=== PATIENT | female | born 1995 | race Caucasian/White ===

== ENCOUNTER 2018-03-23 15:55 | Emergency (ER) | payer BC, OTHER ==
[2018-03-23 16:16] VITALS: RESP 18
[2018-03-23] MEDS ORDERED: SODIUM CHLORIDE 0.9% 1,000 ML IV ONE (16:53)
[2018-03-23] MEDS ORDERED: KETOROLAC 30 MG/ML 1 ML VIAL IVP STA (17:26)
[2018-03-23 17:29] LABS: Amorphous Sediment,Urine Occasional /hpf; Appearance,Urine Cloudy (Clear); Bacteria,Urine Occasional /hpf; Basophils % (A) 0 %; Bilirubin,Urine Negative (Negative); Blood,Urine Negative (Negative); Color,Urine Yellow; Eosinophils # (A) 0.1 k/uL (0-0.7); Eosinophils % (A) 2 %; Glucose,Urine (UA) Negative (Negative); HCT 42.4 % (34.0-46.0); HGB 14.1 gm/dL (11.4-16.0); Hyaline Casts,Urine 7 /lpf (0-2); Ketones,Urine Negative (Negative); Leukocyte Esterase,Urine Small (Negative); Lymphocytes # (A) 1.6 k/uL (1.0-4.8); Lymphocytes % (A) 24 %; MCH 28.9 pg (25.0-35.0); MCHC 33.3 g/dL (31.0-37.0); MCV 86.8 fL (80.0-100.0); Mean Platelet Volume 7.7; Monocytes # (A) 0.3 k/uL (0-1.0); Monocytes % (A) 5 %; Mucus,Urine Few /hpf; Neutrophils # (A) 4.4 k/uL (1.3-7.7); Neutrophils % (A) 68 %; Nitrite,Urine Negative (Negative); Platelet Count 195 k/uL (150-450); Protein,Urine 1+ (Negative); RBC 4.88 m/uL (3.80-5.40); RBC,Urine <1 /hpf (0-5); RDW 12.8 % (11.5-15.5); Specific Gravity,Urine 1.021 (1.001-1.035); Squamous Epithelial Cell,Urine 14 /hpf (0-4); Urobilinogen,Urine <2.0 mg/dL (<2.0); WBC 6.5 k/uL (3.8-10.6); WBC,Urine 17 /hpf (0-5)
[2018-03-23 17:32] LABS: ALT 14 U/L (9-52); AST 19 U/L (14-36); Albumin 4.8 g/dL (3.5-5.0); Alkaline Phosphatase 50 U/L (38-126); Anion Gap 13 mmol/L; Blood Urea Nitrogen 11 mg/dL (7-17); Calcium 9.6 mg/dL (8.4-10.2); Carbon Dioxide 24 mmol/L (22-30); Chloride 105 mmol/L (98-107); Glucose 116 mg/dL (74-99); Potassium 3.8 mmol/L (3.5-5.1); Sodium 142 mmol/L (137-145); Total Bilirubin 0.7 mg/dL (0.2-1.3); Total Protein 7.5 g/dL (6.3-8.2)
[2018-03-23 17:33] LABS: Partial Thromboplastin Time 23.4 sec (22.0-30.0); Prothrombin Time 10.2 sec (9.0-12.0)
[2018-03-23 17:46] LABS: Creatine Kinase 46 U/L (30-135)
[2018-03-23 17:59] LABS: Creatine Kinase MB <0.2 ng/mL (0.0-2.4); Troponin I <0.012 ng/mL (0.000-0.034)
--- NOTE | 2018-03-23 18:02 | XR ---
EXAMINATION TYPE: XR nasal bone DATE OF EXAM: 03/23/2018 COMPARISON: NONE HISTORY: Fall injury today with laceration and pain. TECHNIQUE: Both lateral and frontal projection nasal bones is acquired. FINDINGS: No acute displaced nasal bone fracture is seen. Nasal septum remains midline. Overlying sof t tissue is unremarkable. Visualized sinuses are clear. IMPRESSION: No acute displaced nasal bone fracture is identified.
--- NOTE | 2018-03-23 18:43 | ED ---
Syncope HPI - General Chief Complaint: Syncope Stated Complaint: Syncope/ Not been feeling well Time Seen by Provider: 03/23/18 16:53 Source: patient, RN notes reviewed Mode of arrival: wheelchair Limitations: no limitations - History of Present Illness Initial Comments: 22-year-old female presents emergency Department for syncopal episode. Patient states that she's not been feeling well last few days went to urgent care earlier today to she was constipated. Patient has left lower quadrant something. Patient states that she was standing talking to her grandmother in which she was not feeling well wants it down states that she in the past and off onto the ground. Patient is abrasion to her nose. Patient's tetanus is up- to-date. She complains of pain over her nose denies any epistaxis. Denies any severe headache or dizziness. Patient denies any current nausea vomiting diarrhea. She has no dysuria hematuria. Patient has no chance . - Related Data Home Medications Medication Instructions Recorded Confirmed [id number] 2 tab PO Q4HR PRN 03/23/18 03/23/18 [Excedrin] Allergies Allergy/AdvReac Type Severity Reaction Status Date / Time erythromycin base Allergy Nausea & Verified 03/23/18 17:34 Vomiting latex Allergy Rash/Hives Verified 03/23/18 17:34 Sulfa (Sulfonamide AdvReac Unknown Verified 03/23/18 17:34 Antibiotics) Review of Systems ROS Statement: Those systems with pertinent positive or pertinent negative responses have been documented in the HPI. ROS Other: All systems not noted in ROS Statement are negative. Past Medical History Additional Past Medical History / Comment(s): Kidney infection History of Any Multi-Drug Resistant Organisms: None Reported Past Surgical History: Breast Surgery Additional Past Surgical History / Comment(s): Mas left breats removed Past Anesthesia/Blood Transfusion Reactions: No Reported Reaction Past Psychological History: Depression Smoking Status: Former smoker Past Alcohol Use History: None Reported Past Drug Use History: Marijuana General Exam Limitations: no limitations General appearance: alert, in no apparent distress Head exam: Present: atraumatic, normocephalic, normal inspection Eye exam: Present: normal appearance, PERRL, EOMI. Absent: scleral icterus, conjunctival injection, periorbital swelling ENT exam: Present: normal oropharynx, mucous membranes moist, TM's normal bilaterally, normal external ear exam. Absent: normal exam (Abrasion noted to the bridge of the nose with mild tenderness) Neck exam: Present: normal inspection, full ROM. Absent: tenderness, meningismus, lymphadenopathy Respiratory exam: Present: normal lung sounds bilaterally. Absent: respiratory distress, wheezes, rales, rhonchi, stridor Cardiovascular Exam: Present: regular rate, normal rhythm, normal heart sounds. Absent: systolic murmur, diastolic murmur, rubs, gallop, clicks GI/Abdominal exam: Present: soft, normal bowel sounds. Absent: distended, tenderness, guarding, rebound, rigid Neurological exam: Present: alert, oriented X3, CN II-XII intact, reflexes normal, other (Sqtegh-gi-pywp intact bilaterally without shooting). Absent: motor sensory deficit Skin exam: Present: warm, dry, intact, normal color. Absent: rash Course Vital Signs 03/23/18 16:13 Temperature 97.1 F L Pulse Rate 81 Respiratory 18 Rate Blood Pressure 124/71 O2 Sat by Pulse 100 Oximetry EKG Findings - EKG Comments: EKG Findings:: EKG performed at 17:18 normal sinus rhythm with a rate of 77 WI 180 QRS 86 QTC is QTC 374/423 Medical Decision Making - Medical Decision Making 22-year-old female presents from for syncopal episode. Patient began to feel off, hot flushed feeling. Patient then passed out. Patient had no major complaints at this time. Patient labwork EKG an IV fluids she does feel improved. Patient's symptoms most likely related to vasovagal syncope. Patient follow-up with PCP return for any worsening symptoms. - Lab Data Result diagrams: 03/23/18 17:00 03/23/18 17:00 Lab Results 03/23/18 03/23/18 03/23/18 Range/Units 17:00 17:00 17:00 WBC 6.5 (3.8-10.6) k/uL RBC 4.88 (3.80-5.40) m/uL Hgb 14.1 (11.4-16.0) gm/dL Hct 42.4 (34.0-46.0) % MCV 86.8 (80.0-100.0) fL MCH 28.9 (25.0-35.0) pg MCHC 33.3 (31.0-37.0) g/dL RDW 12.8 (11.5-15.5) % Plt Count 195 (150-450) k/uL Neutrophils % 68 % Lymphocytes % 24 % Monocytes % 5 % Eosinophils % 2 % Basophils % 0 % Neutrophils # 4.4 (1.3-7.7) k/uL Lymphocytes # 1.6 (1.0-4.8) k/uL Monocytes # 0.3 (0-1.0) k/uL Eosinophils # 0.1 (0-0.7) k/uL Basophils # 0.0 (0-0.2) k/uL PT (9.0-12.0) sec INR (<1.2) APTT (22.0-30.0) sec Sodium 142 (137-145) mmol/L Potassium 3.8 (3.5-5.1) mmol/L Chloride 105 (98-107) mmol/L Carbon Dioxide 24 (22-30) mmol/L Anion Gap 13 mmol/L BUN 11 (7-17) mg/dL Creatinine 0.60 (0.52-1.04) mg/dL Est GFR (CKD-EPI)AfAm >90 (>60 ml/min/1.73 sqM) Est GFR (CKD-EPI)NonAf >90 (>60 ml/min/1.73 sqM) Glucose 116 H (74-99) mg/dL Calcium 9.6 (8.4-10.2) mg/dL Total Bilirubin 0.7 (0.2-1.3) mg/dL AST 19 (14-36) U/L ALT 14 (9-52) U/L Alkaline Phosphatase 50 (38-126) U/L Total Creatine Kinase 46 (30-135) U/L CK-MB (CK-2) <0.2 (0.0-2.4) ng/mL CK-MB (CK-2) Rel Index Troponin I <0.012 (0.000-0.034) ng/mL Total Protein 7.5 (6.3-8.2) g/dL Albumin 4.8 (3.5-5.0) g/dL Urine Color Urine Appearance (Clear) Urine pH (5.0-8.0) Ur Specific [place] (1.001-1.035) Urine Protein (Negative) Urine Glucose (UA) (Negative) Urine Ketones (Negative) Urine Blood (Negative) Urine Nitrite (Negative) Urine Bilirubin (Negative) Urine Urobilinogen (<2.0) mg/dL Ur Leukocyte Esterase (Negative) Urine RBC (0-5) /hpf Urine WBC (0-5) /hpf Ur Squamous Epith Cells (0-4) /hpf Amorphous Sediment (None) /hpf Urine Bacteria (None) /hpf Hyaline Casts (0-2) /lpf Urine Mucus (None) /hpf Urine HCG, Qual (Not Detectd) 03/23/18 03/23/18 03/23/18 Range/Units 17:00 17:00 17:00 WBC (3.8-10.6) k/uL RBC (3.80-5.40) m/uL Hgb (11.4-16.0) gm/dL Hct (34.0-46.0) % MCV (80.0-100.0) fL MCH (25.0-35.0) pg MCHC (31.0-37.0) g/dL RDW (11.5-15.5) % Plt Count (150-450) k/uL Neutrophils % % Lymphocytes % % Monocytes % % Eosinophils % % Basophils % % Neutrophils # (1.3-7.7) k/uL Lymphocytes # (1.0-4.8) k/uL Monocytes # (0-1.0) k/uL Eosinophils # (0-0.7) k/uL Basophils # (0-0.2) k/uL PT 10.2 (9.0-12.0) sec INR 1.0 (<1.2) APTT 23.4 (22.0-30.0) sec Sodium (137-145) mmol/L Potassium (3.5-5.1) mmol/L Chloride (98-107) mmol/L Carbon Dioxide (22-30) mmol/L Anion Gap mmol/L BUN (7-17) mg/dL Creatinine (0.52-1.04) mg/dL Est GFR (CKD-EPI)AfAm (>60 ml/min/1.73 sqM) Est GFR (CKD-EPI)NonAf (>60 ml/min/1.73 sqM) Glucose (74-99) mg/dL Calcium (8.4-10.2) mg/dL Total Bilirubin (0.2-1.3) mg/dL AST (14-36) U/L ALT (9-52) U/L Alkaline Phosphatase (38-126) U/L Total Creatine Kinase (30-135) U/L CK-MB (CK-2) (0.0-2.4) ng/mL CK-MB (CK-2) Rel Index Troponin I (0.000-0.034) ng/mL Total Protein (6.3-8.2) g/dL Albumin (3.5-5.0) g/dL Urine Color Yellow Urine Appearance Cloudy H (Clear) Urine pH 7.0 (5.0-8.0) Ur Specific [place] 1.021 (1.001-1.035) Urine Protein 1+ H (Negative) Urine Glucose (UA) Negative (Negative) Urine Ketones Negative (Negative) Urine Blood Negative (Negative) Urine Nitrite Negative (Negative) Urine Bilirubin Negative (Negative) Urine Urobilinogen <2.0 (<2.0) mg/dL Ur Leukocyte Esterase Small H (Negative) Urine RBC <1 (0-5) /hpf Urine WBC 17 H (0-5) /hpf Ur Squamous Epith Cells 14 H (0-4) /hpf Amorphous Sediment Occasional H (None) /hpf Urine Bacteria Occasional H (None) /hpf Hyaline Casts 7 H (0-2) /lpf Urine Mucus Few H (None) /hpf Urine HCG, Qual Not Detected (Not Detectd) Disposition Clinical Impression: Vasovagal syncope Disposition: HOME SELF-CARE Condition: Stable Instructions: Syncope (ED) Additional Instructions: Please return to the Emergency Department if symptoms worsen or any other concerns. Is patient prescribed a controlled substance at d/c from ED?: No Referrals: Víctor Cleary MD [Primary Care Provider] - 1-2 days Time of Disposition: 19:02
--- NOTE | 2018-03-23 18:52 | US ---
EXAMINATION TYPE: US transvaginal DATE OF EXAM: 03/23/2018 COMPARISON: NONE CLINICAL HISTORY: Pain. LLQ and pelvic pain x 4 days TECHNIQUE: Transvaginal (TV). Date of LMP: 02/24/2018 EXAM MEASUREMENTS: Uterus: 7.0 x 3.8 x 4.4 cm Endometrial Stripe:1.0 cm Right Ovary: 2.7 x 1.5 x 1.6 cm Left Ovary: 2.7 x 1.7 x 2.6 cm 1. Uterus: Anteverted wnl 2. Endometrium: wnl 3. Right Ovary: wnl 4. Left Ovary: wnl Spectral, color and waveform doppler imaging shows good arterial and venous flow within the ovaries . 5. Bilateral Adnexa: wnl 6. Posterior cul-de-sac: Small amount of fluid seen. Tiny amount of free fluid in pelvic cul-de-sac is seen on last images saved. Some peripheral follicle s are scattered throughout both ovaries. IMPRESSION: No suspicious finding is seen to account for patient's symptoms.
[2018-03-23 19:11] VITALS: BP 111/57; PULSE 54; TEMP 98.1
== END 2018-03-23 19:36 | disposition home or self-care (01) ==
LOC: EC 15:55
DX: R55 Syncope and collapse (principal); S00.31XA Abrasion of nose, initial encounter; Z88.1 Allergy status to other antibiotic agents; Z88.2 Allergy status to sulfonamides; Z91.040 Latex allergy status; Z87.891 Personal history of nicotine dependence; X58.XXXA Exposure to other specified factors, initial encounter
CPT/HCPCS: 99285; 96374; 96361; 36415; 93005; 80053; 82550; 82553; 84484; 85025; 85610; 85730; 81001; 81025; 87086; 70160; 93975; 76830; J1885

== ENCOUNTER → 2018-12-14 | Outpatient (CLI) | payer BC ==
[2018-12-14 14:22] LABS: Basophils # (A) 0.1 k/uL (0-0.2); Basophils % (A) 1 %; Eosinophils # (A) 0.1 k/uL (0-0.7); Eosinophils % (A) 1 %; HCT 43.5 % (34.0-46.0); Lymphocytes # (A) 1.9 k/uL (1.0-4.8); Lymphocytes % (A) 26 %; MCH 30.8 pg (25.0-35.0); MCHC 34.5 g/dL (31.0-37.0); MCV 89.3 fL (80.0-100.0); Mean Platelet Volume 7.4; Monocytes # (A) 0.3 k/uL (0-1.0); Monocytes % (A) 4 %; Neutrophils # (A) 5.1 k/uL (1.3-7.7); Neutrophils % (A) 67 %; Platelet Count 216 k/uL (150-450); RBC 4.87 m/uL (3.80-5.40); RDW 12.4 % (11.5-15.5); WBC 7.5 k/uL (3.8-10.6)
[2018-12-14 18:49] LABS: Albumin 4.9 g/dL (3.80-4.90); Albumin/Globulin Ratio 2.33 (1.20-2.10); Calcium 9.6 mg/dL (8.7-10.3); Globulin 2.1 g/dL (1.6-3.3); Potassium 3.8 mmol/L (3.5-5.5); Total Bilirubin 0.8 mg/dL (0.2-1.2)
[2018-12-14 18:57] LABS: HCG,Quantitative Serum 111.5 mIU/mL; T4, Free (Free Thyroxine) 1.4 ng/dL (0.80-1.80)
[2018-12-14 19:52] LABS: Gliadin AB IgA, Unit <0.2 U/mL
== END | disposition home or self-care (01) ==
LOC: LABWHC1 12:35
PROVIDERS: ATTEND Physician Assistant
DX: R19.4 Change in bowel habit (principal)
CPT/HCPCS: 36415; 80053; 83516; 84439; 84443; 84702; 85025

== ENCOUNTER → 2019-01-29 | Outpatient (CLI) | payer BC ==
[2019-01-29 13:24] LABS: HCT 35.7 % (34.0-46.0); HGB 12.5 gm/dL (11.4-16.0); MCH 31.2 pg (25.0-35.0); Platelet Count 216 k/uL (150-450); RBC 4.01 m/uL (3.80-5.40); RDW 12.8 % (11.5-15.5); WBC 8.7 k/uL (3.8-10.6)
[2019-02-01 03:33] LABS: Toxoplasma Antibody (IgG) <3.0 IU/mL (<7.2); Toxoplasma Antibody (IgM) <3.0 AU/mL (<8.0)
== END | disposition home or self-care (01) ==
LOC: LABWHC1 12:46
PROVIDERS: ATTEND Obstetrics & Gynecology
DX: Z34.01 Encounter for supervision of normal first pregnancy, first trimester (principal)
CPT/HCPCS: 36415; 82565; 82947; 85027; 86762; 86777; 86778; 86780; 86850; 86900; 86901; 87340

== ENCOUNTER 2019-08-23 12:25 | Inpatient (IN) | payer BC, OTHER ==
--- NOTE | 2019-08-24 12:18 | P.HPOB ---
History of Present Illness H&P Date: 08/24/19 Chief Complaint: Postdates, requesting induction. This patient is a pleasant 23 yr female EDC 08/23/2019 estimated gestational age 40 2/7 weeks who presents for postdates induction of labor. has been uncomplicated. She is now requesting induction of labor. Review of Systems Genitourinary: Reports Menstruation: Reports amenorrhea Past Medical History Past Medical History: No Reported History Additional Past Medical History / Comment(s): Kidney infection History of Any Multi-Drug Resistant Organisms: None Reported Past Surgical History: Breast Surgery Additional Past Surgical History / Comment(s): Lumpectomy left breast Past Anesthesia/Blood Transfusion Reactions: No Reported Reaction Past Psychological History: Depression Smoking Status: Former smoker Past Alcohol Use History: None Reported Past Drug Use History: Marijuana (Quit during .) Medications and Allergies Home Medications Medication Instructions Recorded Confirmed Type [id number] [id number] 2 tab PO Q4HR PRN 03/23/18 03/23/18 History [Excedrin] Allergies Allergy/AdvReac Type Severity Reaction Status Date / Time erythromycin base Allergy Nausea & Verified 03/23/18 17:34 Vomiting latex Allergy Rash/Hives Verified 03/23/18 17:34 Sulfa (Sulfonamide AdvReac Unknown Verified 03/23/18 17:34 Antibiotics) Exam - OBG Physical Exam Abdomen: bowel sounds normal, no diffuse tenderness, no bruit present, no guarding noted, no hepatomegaly, no splenomegaly, no mass Vulva: both: normal Vagina: normal moisture, no discharge Cervix: no lesion (1-2/50/0 station), no discharge Uterus: enlarged (Fundal height is 39 cm.) Results labs: A negative (received Rhogam 05/24/2019), HepB neg, RPR non- reactive, Rubella Immune, Toxo negative, GBS positive. Ultrasound shows normal growth. Assessment and Plan Assessment: This is a pleasant 23 yr female 40 2/7 weeks gestation who is requesting induction of labor. Positive GBS culture. Plan is antibiotic prophylaxis and induction of labor. I have discussed the induction process, risks/benefits. (1) Postmaturity , 40-42 weeks gestation Status: Acute Code(s): O48.0 - POST-TERM SNOMED Code(s): 79064603449032 (2) Group B streptococcal carriage complicating Status: Acute Code(s): O99.820 - STREPTOCOCCUS B CARRIER STATE COMPLICATING SNOMED Code(s): 123988459528478 (3) Elective induction of labor planned Status: Acute Code(s): HFJ6244 - SNOMED Code(s): 479184716
[2019-08-25] MEDS ORDERED: OXYTOCIN 10 UNIT/ML 1 ML VIAL IM PRN (06:06)
[2019-08-25] MEDS ORDERED: AMPICILLIN 2,000 MG in SODIUM CHLORIDE 0.9% 100 ML IVPB STA (06:06)
[2019-08-25] MEDS ORDERED: OXYTOCIN 30 UNITS/500 ML NS 30 UNIT in SALINE 1 500ML.BAG IV SCH (06:06)
[2019-08-25] MEDS ORDERED: LIDOCAINE 0.5% (PF) 5 MG/ML (50 ML SDV) SQ PRN (06:06)
[2019-08-25] MEDS ORDERED: METHYLERGONOVINE 0.2 MG/ML 1 ML AMP IM PRN (06:06)
[2019-08-25] MEDS ORDERED: TERBUTALINE 1 MG/ML VIAL SQ PRN (06:06)
[2019-08-25] MEDS ORDERED: CARBOPROST TROMETHAMINE 250 MCG/ML 1 ML AMP IM PRN (06:06)
[2019-08-25] MEDS: LACTATED RINGERS 1,000 ML IV SCH ×2 (06:14→09:28)
[2019-08-25 06:43] LABS: Basophils # (A) 0.1 k/uL (0-0.2); Basophils % (A) 1 %; Eosinophils # (A) 0.2 k/uL (0-0.7); Eosinophils % (A) 2 %; HCT 39.4 % (34.0-46.0); HGB 12.7 gm/dL (11.4-16.0); Lymphocytes # (A) 2.6 k/uL (1.0-4.8); Lymphocytes % (A) 22 %; MCH 28.7 pg (25.0-35.0); MCHC 32.3 g/dL (31.0-37.0); MCV 88.8 fL (80.0-100.0); Mean Platelet Volume 7.9; Monocytes # (A) 0.8 k/uL (0-1.0); Monocytes % (A) 7 %; Neutrophils # (A) 7.8 k/uL (1.3-7.7); Neutrophils % (A) 67 %; Platelet Count 217 k/uL (150-450); RBC 4.44 m/uL (3.80-5.40); RDW 14.3 % (11.5-15.5); WBC 11.7 k/uL (3.8-10.6)
[2019-08-25 06:53] VITALS: BMI 24.9
[2019-08-25] MEDS ORDERED: ROPIVACAINE 5MG/ML 20ML VIAL ONE (09:31)
[2019-08-25] MEDS ORDERED: fentaNYL (PF) 50 MCG/ML 5 ML AMP ONE (09:31)
[2019-08-25] MEDS ORDERED: SODIUM CHLORIDE 0.9% 100 ML BAG ONE (09:31)
[2019-08-25] MEDS: AMPICILLIN 1,000 MG in SODIUM CHLORIDE 0.9% 50 ML IVPB SCH ×2 (10:21→15:56)
[2019-08-25] MEDS ORDERED: ONDANSETRON 4 MG/2 ML VIAL IVP STA (12:10)
[2019-08-25] MEDS ORDERED: Rhogam IMMUNE GLOBULIN 1,500 UNIT/1 ML IM ONE (15:19)
[2019-08-25] MEDS ORDERED: OXYTOCIN 20 UNITS/1000 ML NS 1,000 ML IV SCH (15:19)
[2019-08-25] MEDS ORDERED: SIMETHICONE 80 MG CHEWABLE PO PRN (15:19)
[2019-08-25] MEDS ORDERED: BENZOCAINE/MENTHOL SPRAY 1 GM/SPRAY AEROSOL TOPICAL PRN (15:19)
[2019-08-25] MEDS ORDERED: BISACODYL 10 MG SUPP RECTAL PRN (15:19)
[2019-08-25] MEDS ORDERED: diphenhydrAMINE 50 MG/ML 1 ML VIAL IVP PRN (15:19)
[2019-08-25] MEDS ORDERED: WITCH HAZEL 1 EACH MED..PAD TOPICAL PRN (15:19)
[2019-08-25] MEDS ORDERED: LANOLIN CREAM 5 GM TUBE TOPICAL PRN (15:19)
[2019-08-25] MEDS ORDERED: ZOLPIDEM 5 MG TAB PO PRN (15:19)
[2019-08-25] MEDS ORDERED: diphenhydrAMINE 25 MG CAP PO PRN (15:19)
[2019-08-25] MEDS ORDERED: HYDROCORTISONE 2.5% RECTAL CREAM 30 GM TUBE RECTAL PRN (15:19)
[2019-08-25] MEDS: IBUPROFEN 600 MG TAB PO PRN ×2 (15:42→23:29)
[2019-08-25] MEDS: SENNOSIDES-DOCUSATE SODIUM 1 EACH TAB PO SCH ×2 (16:11→19:32)
--- NOTE | 2019-08-25 16:51 | P.PROBDLV ---
Vaginal Delivery Note - . Vaginal Delivery Note: Normal vaginal delivery viable male infant Apgars 9 and 9 delivery time is 1510 hrs. Please see dictated H&P for intimate details of this patient's admission. Brief summary this is a pleasant 23-year-old 1 para 0 female 40-2/7 weeks gestation who is admitted to labor and delivery for postdates induction of labor. Patient had a positive group B strep culture started on 2 g ampicillin 1 g every 4. She has Pitocin augmentation of labor and artificial rupture membranes at 2 cm for clear fluid. Labor progresses and she does get an epidural she quickly goes to complete. Patient pushes for approximately 1 hour and 45 minutes and pushes the head to the perineum. At this point the patient is exhausted and has suboptimal effort and therefore I infiltrate the posterior perineum with lidocaine and a midline episiotomy is made upon doing th is with the next push we have delivery the 's head over the intact perineum. was delivered straight hospital posterior presentation. There is no evidence of a nuchal cord. Mouth and nares are bulb suctioned. The anterior shoulder deliver spontaneously without effort and the posterior shoulder and rest this 's body. This is a vigorous viable male infant Apgars are 9 and 9 delivery time was 1510 hrs. After delivery of the infant the is late the mother's abdomen after the cord is done pulsing is doubly clamped and cut. Cord blood is obtained for Rh status. The placenta is then spontaneously delivered intact. Inspection of perineum shows a second-degree laceration which is repaired with 3-0 Vicryl usual fashion excellent reapproximation is noted. Estimated blood loss is 200 mL. There are no complications. All counts are correct 3. and mother stable delivery room.
[2019-08-25] MEDS: ACETAMINOPHEN TAB 325 MG TAB PO PRN (19:33)
--- NOTE | 2019-08-26 06:33 | P.PNOBGVD ---
Subjective - Subjective Patient reports: Reports appetite normal, Reports voiding normally, Reports pain well controlled, Reports ambulating normally : doing well Objective - Latest Vital Signs Latest vital signs: Vital Signs Temp Pulse Resp BP 08/26/19 00:00 98.0 F 75 16 108/57 08/25/19 20:00 98.0 F 113 H 16 142/75 08/25/19 17:30 98.0 F 99 18 138/71 08/25/19 17:00 97.9 F 87 18 127/68 08/25/19 16:30 98.0 F 94 18 122/71 08/25/19 16:15 102 H 123/66 08/25/19 16:00 97.8 F 100 18 128/65 08/25/19 15:45 98.3 F 109 H 18 132/67 08/25/19 15:30 97.8 F 103 H 18 134/71 Intake and Output 08/25/19 08/25/19 08/26/19 14:59 22:59 06:59 Output Total 600 200 Balance -600 -200 Output: Urine 600 Estimated Blood Loss 200 Other: # Voids 1 2 - Exam Lungs: bilateral: normal Chest: Normal S1, Normal S2 Extremities: Present: normal Abdomen: Present: normal appearance, soft Uterus: Present: normal, firm - Labs Labs: Abnormal Lab Results - Last 24 Hours (Table) 08/25/19 Range/Units 06:05 WBC 11.7 H (3.8-10.6) k/uL Neutrophils # 7.8 H (1.3-7.7) k/uL Assessment and Plan Assessment: day #1. Patient is resting without complaints. Vital signs are stable she is afebrile. Uterus is firm nontender she's having normal lochia. My impression is a normal course. Plan is to continue routine care discharge home tomorrow (1) Postmaturity , 40-42 weeks gestation Current Visit: No Status: Acute Code(s): O48.0 - POST-TERM SNOMED Code(s): 75509978318719 (2) Group B streptococcal carriage complicating Current Visit: No Status: Acute Code(s): O99.820 - STREPTOCOCCUS B CARRIER STATE COMPLICATING SNOMED Code(s): 000802883303838 (3) Elective induction of labor planned Current Visit: No Status: Acute Code(s): [id number] - SNOMED Code(s): 960819219
[2019-08-26] MEDS: SENNOSIDES-DOCUSATE SODIUM 1 EACH TAB PO SCH ×2 (07:55→19:31)
[2019-08-26] MEDS: IBUPROFEN 600 MG TAB PO PRN ×2 (07:55→17:44)
[2019-08-26] MEDS: ACETAMINOPHEN TAB 325 MG TAB PO PRN ×2 (12:18→19:30)
--- NOTE | 2019-08-27 06:29 | P.PNOBGVD ---
Subjective - Subjective Patient reports: Reports appetite normal, Reports voiding normally, Reports pain well controlled, Reports ambulating normally : doing well, other (Jaundice) Objective - Latest Vital Signs Latest vital signs: Vital Signs Temp Pulse Resp BP Pulse Ox 08/27/19 00:00 98.5 F 93 16 138/77 08/26/19 16:00 98.3 F 72 18 120/74 08/26/19 08:00 98.2 F 84 18 111/70 97 Intake and Output 08/26/19 08/26/19 08/27/19 14:59 22:59 06:59 Other: # Voids 1 2 1 - Exam Lungs: bilateral: normal Chest: Normal S1, Normal S2 Extremities: Present: normal Abdomen: Present: normal appearance, soft Uterus: Present: normal, firm Assessment and Plan Assessment: Post day #2. Patient is resting without new complaints. Vital signs are stable she's afebrile. Uterus is firm nontender she's having normal lochia. Baby is currently being treated for some jaundice. Plan today is to continue routine care. Discharge home later today. (1) Postmaturity , 40-42 weeks gestation Current Visit: No Status: Acute Code(s): O48.0 - POST-TERM SNOMED Code(s): 81459427259100 (2) Group B streptococcal carriage complicating Current Visit: No Status: Acute Code(s): O99.820 - STREPTOCOCCUS B CARRIER STATE COMPLICATING SNOMED Code(s): 438878142914807 (3) Elective induction of labor planned Current Visit: No Status: Acute Code(s): [id number] - SNOMED Code(s): 177641748
--- NOTE | 2019-08-27 06:33 | P.DS ---
Providers Date of admission: 08/25/19 05:52 Expected date of discharge: 08/27/19 Attending physician: Emmanuel Flores Primary care physician: Yobani Cleary - Discharge Diagnosis(es) (1) Postmaturity , 40-42 weeks gestation Current Visit: No Status: Acute (2) Group B streptococcal carriage complicating Current Visit: No Status: Acute (3) Elective induction of labor planned Current Visit: No Status: Acute Hospital Course: Please see dictated H&P for intimate details of this patient's admission. Brief summary this pleasant 23-year-old 1 para 0 female 40-2/7 weeks gestation admitted to labor and delivery for postdates induction of labor. Patient admitted and goes on have a vaginal delivery viable male infant. Please see dictated delivery note. day #2 patient's felt to be stable for discharge home follow up with me in 6 weeks. Procedures: Induction of labor and normal vaginal delivery Patient Condition at Discharge: Good Plan - Discharge Summary New Discharge Prescriptions: New Ibuprofen [Motrin] 600 mg PO Q6HR PRN #40 tab PRN Reason: Mild Pain Or Fever >= 100.5 No Action Pnv,Calcium 72/Iron/Folic Acid [ Plus Tablet] 1 tab PO DAILY Discharge Medication List Pnv,Calcium 72/Iron/Folic Acid [ Plus Tablet] 1 tab PO DAILY 08/25/19 [History] Ibuprofen [Motrin] 600 mg PO Q6HR PRN #40 tab 08/27/19 [Rx] Follow up Appointment(s)/Referral(s): Emmanuel Flores MD [STAFF PHYSICIAN] - 10/05/19 2:00 pm Patient Instructions/Handouts: Vaginal Delivery (DC) Activity/Diet/Wound Care/Special Instructions: No intercourse or anything per vagina for 6 weeks. Please call if any fever, chills, excessive vaginal bleeding, and/or abdominal pain. Discharge Disposition: HOME SELF-CARE
[2019-08-27] MEDS: IBUPROFEN 600 MG TAB PO PRN (10:10)
[2019-08-27] MEDS: SENNOSIDES-DOCUSATE SODIUM 1 EACH TAB PO SCH (10:11)
[2019-08-27 10:22] VITALS: BP 103/56; PULSE 82; RESP 18; TEMP 98
== END 2019-08-27 17:20 | disposition home or self-care (01) | DRG 807 ==
LOC: 4FBP 08-25 05:52
PROVIDERS: ADMIT Obstetrics & Gynecology; ATTEND Obstetrics & Gynecology
PROC: 10E0XZZ Delivery of Products of Conception, External Approach (ICD-10-PCS; principal; 2019-08-25)
PROC: 0KQM0ZZ Repair Perineum Muscle, Open Approach (ICD-10-PCS; 2019-08-25)
PROC: 0W8NXZZ Division of Female Perineum, External Approach (ICD-10-PCS; 2019-08-25)
PROC: 00HU33Z Insertion of Infusion Device into Spinal Canal, Percutaneous Approach (ICD-10-PCS; 2019-08-25)
PROC: 3E0R3BZ Introduction of Anesthetic Agent into Spinal Canal, Percutaneous Approach (ICD-10-PCS; 2019-08-25)
PROC: 3E033VJ Introduction of Other Hormone into Peripheral Vein, Percutaneous Approach (ICD-10-PCS; 2019-08-25)
PROC: 10907ZC Drainage of Amniotic Fluid, Therapeutic from Products of Conception, Via Natural or Artificial Opening (ICD-10-PCS; 2019-08-25)
DX: O48.0 Post-term pregnancy (principal); Z37.0 Single live birth; O70.1 Second degree perineal laceration during delivery; O99.824 Streptococcus B carrier state complicating childbirth; Z3A.40 40 weeks gestation of pregnancy; Z98.890 Other specified postprocedural states; Z87.440 Personal history of urinary (tract) infections; Z79.899 Other long term (current) drug therapy; Z79.82 Long term (current) use of aspirin; Z86.59 Personal history of other mental and behavioral disorders; Z87.891 Personal history of nicotine dependence; Z88.2 Allergy status to sulfonamides; Z88.1 Allergy status to other antibiotic agents; Z91.040 Latex allergy status
CPT/HCPCS: 85025; 85461; 86850; 86870; 86880; 86900; 86901

== ENCOUNTER 2022-04-23 08:51 | Emergency (ER) | payer OTHER ==
[2022-04-23 08:55] VITALS: TEMP 97.6
[2022-04-23 09:17] LABS: Amorphous Sediment,Urine Rare /hpf; Appearance,Urine Clear (Clear); Bilirubin,Urine Negative (Negative); Blood,Urine Small (Negative); Color,Urine Light Yellow; Glucose,Urine (UA) Negative (Negative); Ketones,Urine Negative (Negative); Leukocyte Esterase,Urine Small (Negative); Mucus,Urine Occasional /hpf; Nitrite,Urine Negative (Negative); PH, Urine 6.5 (5.0-8.0); Protein,Urine Negative (Negative); RBC,Urine 17 /hpf (0-5); Specific Gravity,Urine 1.008 (1.001-1.035); Squamous Epithelial Cell,Urine <1 /hpf (0-4); Urobilinogen,Urine <2.0 mg/dL (<2.0); WBC,Urine 10 /hpf (0-5)
--- NOTE | 2022-04-23 10:59 | ED ---
General Adult HPI - General Chief complaint: Abdominal Pain Stated complaint: 7 wks preg, cramping Time Seen by Provider: 04/23/22 10:50 Source: patient, RN notes reviewed, old records reviewed Mode of arrival: ambulatory Limitations: no limitations - History of Present Illness Initial comments: This is a well-appearing 26-year-old female that presents to the emergency room with lower pelvic cramping and dysuria that started last night. Pain is lower pelvis worse on the right. She did call her [employer] who referred her to the emergency room for evaluation. She states that she does have her first [employer] appointment in 2 weeks. She is a . She denies any vaginal bleeding. Does have nausea but no vomiting. She is a nonsmoker. -: hour(s) Location: pelvis Severity scale (1-10): 5 Quality: other (cramping) Improves with: none Worsens with: none Associated Symptoms: other (dysuria) Treatments Prior to Arrival: none - Related Data Home Medications Medication Instructions Recorded Confirmed Pnv,Calcium 72/Iron/Folic Acid 1 tab PO DAILY 08/25/19 08/25/19 [ Plus Tablet] Previous Rx's Medication Instructions Recorded Ibuprofen [Motrin] 600 mg PO Q6HR PRN #40 tab 08/27/19 Cephalexin [Keflex] 500 mg PO Q6HR 7 Days #28 cap 04/23/22 Allergies Allergy/AdvReac Type Severity Reaction Status Date / Time erythromycin base Allergy Rash/Hives Verified 04/23/22 08:55 latex Allergy Rash/Hives Verified 04/23/22 08:55 Review of Systems ROS Statement: Those systems with pertinent positive or pertinent negative responses have been documented in the HPI. ROS Other: All systems not noted in ROS Statement are negative. Past Medical History Past Medical History: Asthma Additional Past Medical History / Comment(s): pt states has childhood hx of asthma. states uses inhaler very rarely. pt also states that she has occasional migraines, has a hx of anxiety and depression that she has not had to be medicated for for 2 years. History of Any Multi-Drug Resistant Organisms: None Reported Past Surgical History: Breast Surgery Additional Past Surgical History / Comment(s): Lumpectomy left breast 2016 Past Anesthesia/Blood Transfusion Reactions: No Reported Reaction Past Psychological History: Anxiety, Depression Smoking Status: Never smoker Past Alcohol Use History: None Reported Past Drug Use History: Marijuana - Past Family History Father Family Medical History: Hypertension General Exam Limitations: no limitations General appearance: alert, in no apparent distress Head exam: Present: atraumatic, normocephalic, normal inspection Eye exam: Present: normal appearance. Absent: scleral icterus, conjunctival injection ENT exam: Present: normal exam, normal oropharynx, mucous membranes moist Respiratory exam: Present: normal lung sounds bilaterally. Absent: respiratory distress, accessory muscle use Cardiovascular Exam: Present: regular rate, normal heart sounds GI/Abdominal exam: Present: soft, tenderness (suprapubic). Absent: distended Extremities exam: Present: normal inspection, normal capillary refill. Absent: pedal edema Back exam: Absent: tenderness, CVA tenderness (R), CVA tenderness (L) Neurological exam: Present: alert, oriented X3 Psychiatric exam: Present: normal affect, normal mood Skin exam: Present: warm, dry, normal color. Absent: cyanosis, diaphoretic, petechiae, pallor Course Vital Signs 04/23/22 04/23/22 08:53 12:11 Temperature 97.6 F Pulse Rate 64 75 Respiratory 20 18 Rate Blood Pressure 118/60 114/67 O2 Sat by Pulse 100 Oximetry Medical Decision Making - Medical Decision Making Ultrasound shows IUP 6 weeks 4 days. Patient denies vaginal bleeding. Urinalysis shows 10 WBCs and small amount of blood. There is no bacerturia noted. Urine was sent for culture and patient will be placed on Keflex since she has symptoms of dysuria and is . She was instructed to take Tylenol as needed for any discomfort. She was instructed to follow-up with her [employer] or primary care doctor this week and return to the emergency room with any new or concerning symptoms including increased abdominal pain or vaginal bleeding. Patient is agreeable to this plan of care. Case discussed with Dr. Bagley - Lab Data Lab Results 04/23/22 Range/Units 09:03 Urine Color Light Yellow Urine Appearance Clear (Clear) Urine pH 6.5 (5.0-8.0) Ur Specific [place] 1.008 (1.001-1.035) Urine Protein Negative (Negative) Urine Glucose (UA) Negative (Negative) Urine Ketones Negative (Negative) Urine Blood Small H (Negative) Urine Nitrite Negative (Negative) Urine Bilirubin Negative (Negative) Urine Urobilinogen <2.0 (<2.0) mg/dL Ur Leukocyte Esterase Small H (Negative) Urine RBC 17 H (0-5) /hpf Urine WBC 10 H (0-5) /hpf Ur Squamous Epith Cells <1 (0-4) /hpf Amorphous Sediment Rare H (None) /hpf Urine Mucus Occasional H (None) /hpf Disposition Clinical Impression: UTI (urinary tract infection) Disposition: HOME SELF-CARE Condition: Good Instructions (If sedation given, give patient instructions): Dysuria (ED), Urinary Tract Infection in (ED) Additional Instructions: Increase your fluid intake. Take antibiotics as prescribed and follow-up with the primary care doctor this week. Return to the emergency room with any new or concerning symptoms including vaginal bleeding, increased abdominal pain or fevers. Prescriptions: Cephalexin [Keflex] 500 mg PO Q6HR 7 Days #28 cap Is patient prescribed a controlled substance at d/c from ED?: No Referrals: Víctor Cleary MD [Primary Care Provider] - 1-2 days Time of Disposition: 12:06
--- NOTE | 2022-04-23 11:35 | US ---
EXAMINATION TYPE: Transabdominal DATE OF EXAM: 04/23/2022 10:48 AM COMPARISON: NONE CLINICAL HISTORY: 7 weeks preg and cramping. EXAM PERFORMED: EXAM MEASUREMENTS: GESTATIONAL AGE / DATING Physician Established: Not yet established Dates by LMP: (7 weeks/0 days) EDC: 12-13-22 Dates by First Scan: No previous this is first scan Dates by Current Scan for: (6 weeks/4 days) EDC: 12-10-21 MATERNAL ANATOMY Uterus: 9.4 x 5.8 x 7.8cm Right Ovary: 3.1 x 1.7 x 1.9cm Left Ovary: 2.2 x 1.5 x 1.8 Post CDS / Adnexa: wnl GESTATION / SURVEY CRL: 0.6cm (6 weeks/4 days) Yolk Sac (normal less than 6mm): 3mm Heart Rate: 133 bpm Rhythm: Normal IUP: Viable IUP Date of LMP: 03-05-22 Beta HcG (if available): Not available at this time IMPRESSION: Single viable intrauterine corresponding to an ultrasound age of 6 weeks 4 days with estima hortencia date of delivery 12/13/2022
[2022-04-23 12:12] VITALS: BP 114/67; PULSE 75; RESP 18
== END 2022-04-23 12:12 | disposition home or self-care (01) ==
LOC: EC 08:51
DX: O23.41 Unspecified infection of urinary tract in pregnancy, first trimester (principal); N39.0 Urinary tract infection, site not specified; O99.511 Diseases of the respiratory system complicating pregnancy, first trimester; J45.909 Unspecified asthma, uncomplicated; Z3A.01 Less than 8 weeks gestation of pregnancy; Z88.1 Allergy status to other antibiotic agents; Z91.040 Latex allergy status
CPT/HCPCS: 76801; 81001; 99284

== ENCOUNTER 2022-06-20 11:58 | Emergency (ER) | payer OTHER ==
[2022-06-20 12:23] VITALS: TEMP 97.9
[2022-06-20 13:01] VITALS: BP 111/66; PULSE 82; RESP 18
[2022-06-20] MEDS ORDERED: ONDANSETRON 4 MG/2 ML VIAL IVP STA (13:03)
[2022-06-20] MEDS ORDERED: SODIUM CHLORIDE 0.9% 2,000 ML IV STA (13:03)
[2022-06-20 13:26] LABS: Basophils % (A) 0 %; Eosinophils # (A) 0.1 k/uL (0-0.7); Eosinophils % (A) 1 %; HCT 40.7 % (34.0-46.0); Lymphocytes # (A) 0.8 k/uL (1.0-4.8); Lymphocytes % (A) 5 %; MCH 30.7 pg (25.0-35.0); MCHC 34.5 g/dL (31.0-37.0); MCV 89.2 fL (80.0-100.0); Mean Platelet Volume 7.4; Monocytes # (A) 0.5 k/uL (0-1.0); Monocytes % (A) 3 %; Neutrophils # (A) 13.4 k/uL (1.3-7.7); Neutrophils % (A) 90 %; Platelet Count 255 k/uL (150-450); RBC 4.56 m/uL (3.80-5.40); RDW 13.4 % (11.5-15.5); WBC 14.9 k/uL (3.8-10.6)
[2022-06-20 13:33] LABS: ALT 10 U/L (4-34); AST 22 U/L (14-36); African American GFR (CKD) >90 (>60 ml/min/1.73 sqM); Albumin 4.3 g/dL (3.5-5.0); Alkaline Phosphatase 47 U/L (38-126); Anion Gap 8 mmol/L; Blood Urea Nitrogen 8 mg/dL (7-17); Calcium 9.2 mg/dL (8.4-10.2); Carbon Dioxide 20 mmol/L (22-30); Chloride 107 mmol/L (98-107); Glucose 85 mg/dL (74-99); Non-African American GFR(CKD) >90 (>60 ml/min/1.73 sqM); Potassium 3.9 mmol/L (3.5-5.1); Sodium 135 mmol/L (137-145); Total Bilirubin 0.6 mg/dL (0.2-1.3); Total Protein 7.4 g/dL (6.3-8.2)
--- NOTE | 2022-06-20 13:57 | ED ---
Nausea/Vomiting/Diarrhea HPI - General Chief complaint: Nausea/Vomiting/Diarrhea Stated complaint: 15 weeks ,vomiting Time Seen by Provider: 06/20/22 12:50 Source: patient, RN notes reviewed Mode of arrival: ambulatory Limitations: no limitations - History of Present Illness Initial comments: 26-year-old female presents emergency department with chief nausea vomiting. Patient states she is currently 15 weeks states that she's had ongoing nausea but states that she can keep down last for hours. She states she has mild upset stomach, mild discomfort upper abdomen denies any vaginal bleeding or vaginal discharge no lower abdominal pain denies any complaints. Patient denies any fevers chills no sick contacts. - Related Data Home Medications Medication Instructions Recorded Confirmed Vit No.180/Iron/Folic 1 tab PO DAILY 08/25/19 06/20/22 [ Plus Tablet] Allergies Allergy/AdvReac Type Severity Reaction Status Date / Time erythromycin base Allergy Rash/Hives Verified 06/20/22 13:46 latex Allergy Rash/Hives Verified 06/20/22 13:46 Review of Systems ROS Statement: Those systems with pertinent positive or pertinent negative responses have been documented in the HPI. ROS Other: All systems not noted in ROS Statement are negative. Past Medical History Past Medical History: Asthma Additional Past Medical History / Comment(s): pt states has childhood hx of asthma. states uses inhaler very rarely. pt also states that she has occasional migraines, has a hx of anxiety and depression that she has not had to be medicated for for 2 years. History of Any Multi-Drug Resistant Organisms: None Reported Past Surgical History: Breast Surgery Additional Past Surgical History / Comment(s): Lumpectomy left breast 2016 Past Anesthesia/Blood Transfusion Reactions: No Reported Reaction Past Psychological History: Anxiety, Depression Smoking Status: Never smoker Past Alcohol Use History: None Reported Past Drug Use History: None Reported - Past Family History Father Family Medical History: Hypertension General Exam Limitations: no limitations General appearance: alert, in no apparent distress Head exam: Present: atraumatic, normocephalic, normal inspection Neck exam: Present: normal inspection, full ROM. Absent: tenderness, meningismus, lymphadenopathy Respiratory exam: Present: normal lung sounds bilaterally. Absent: respiratory distress, wheezes, rales, rhonchi, stridor Cardiovascular Exam: Present: regular rate, normal rhythm, normal heart sounds. Absent: systolic murmur, diastolic murmur, rubs, gallop, clicks GI/Abdominal exam: Present: soft, normal bowel sounds. Absent: distended, tenderness, guarding, rebound, rigid Back exam: Absent: CVA tenderness (R), CVA tenderness (L) Neurological exam: Present: alert Skin exam: Present: warm, dry, intact, normal color. Absent: rash Course Vital Signs 06/20/22 06/20/22 12:18 13:01 Temperature 97.9 F Pulse Rate 87 82 Respiratory 16 18 Rate Blood Pressure 121/75 111/66 O2 Sat by Pulse 100 98 Oximetry Medical Decision Making - Medical Decision Making Labs show evidence of dehydration, 3+ ketones. Patient was given 2 L of fluids tolerate oral intake. Patient discharged with Zofran return parameters were discussed. - Lab Data Result diagrams: 06/20/22 13:06 06/20/22 13:06 Lab Results 06/20/22 06/20/22 06/20/22 Range/Units 13:06 13:06 13:54 WBC 14.9 H (3.8-10.6) k/uL RBC 4.56 (3.80-5.40) m/uL Hgb 14.0 (11.4-16.0) gm/dL Hct 40.7 (34.0-46.0) % MCV 89.2 (80.0-100.0) fL MCH 30.7 (25.0-35.0) pg MCHC 34.5 (31.0-37.0) g/dL RDW 13.4 (11.5-15.5) % Plt Count 255 (150-450) k/uL MPV 7.4 Neutrophils % 90 % Lymphocytes % 5 % Monocytes % 3 % Eosinophils % 1 % Basophils % 0 % Neutrophils # 13.4 H (1.3-7.7) k/uL Lymphocytes # 0.8 L (1.0-4.8) k/uL Monocytes # 0.5 (0-1.0) k/uL Eosinophils # 0.1 (0-0.7) k/uL Basophils # 0.0 (0-0.2) k/uL Sodium 135 L (137-145) mmol/L Potassium 3.9 (3.5-5.1) mmol/L Chloride 107 (98-107) mmol/L Carbon Dioxide 20 L (22-30) mmol/L Anion Gap 8 mmol/L BUN 8 (7-17) mg/dL Creatinine 0.44 L (0.52-1.04) mg/dL Est GFR (CKD-EPI)AfAm >90 (>60 ml/min/1.73 sqM) Est GFR (CKD-EPI)NonAf >90 (>60 ml/min/1.73 sqM) Glucose 85 (74-99) mg/dL Calcium 9.2 (8.4-10.2) mg/dL Total Bilirubin 0.6 (0.2-1.3) mg/dL AST 22 (14-36) U/L ALT 10 (4-34) U/L Alkaline Phosphatase 47 (38-126) U/L Total Protein 7.4 (6.3-8.2) g/dL Albumin 4.3 (3.5-5.0) g/dL Urine Color Yellow Urine Appearance Clear (Clear) Urine pH 5.5 (5.0-8.0) Ur Specific [place] 1.018 (1.001-1.035) Urine Protein Negative (Negative) Urine Glucose (UA) Negative (Negative) Urine Ketones 3+ H (Negative) Urine Blood Negative (Negative) Urine Nitrite Negative (Negative) Urine Bilirubin Negative (Negative) Urine Urobilinogen <2.0 (<2.0) mg/dL Ur Leukocyte Esterase Negative (Negative) Disposition Clinical Impression: Nausea/vomiting in , Dehydration Disposition: HOME SELF-CARE Condition: Stable Instructions (If sedation given, give patient instructions): Acute Nausea and Vomiting (ED) Additional Instructions: Please return to the Emergency Department if symptoms worsen or any other concerns. Is patient prescribed a controlled substance at d/c from ED?: No Referrals: Víctor Cleary MD [Primary Care Provider] - 1-2 days Time of Disposition: 14:37
[2022-06-20 14:14] LABS: Appearance,Urine Clear (Clear); Bilirubin,Urine Negative (Negative); Blood,Urine Negative (Negative); Color,Urine Yellow; Glucose,Urine (UA) Negative (Negative); Ketones,Urine 3+ (Negative); Leukocyte Esterase,Urine Negative (Negative); Nitrite,Urine Negative (Negative); PH, Urine 5.5 (5.0-8.0); Protein,Urine Negative (Negative); Specific Gravity,Urine 1.018 (1.001-1.035); Urobilinogen,Urine <2.0 mg/dL (<2.0)
[2022-06-20] MEDS ORDERED: ONDANSETRON 4 MG ODT STARTER PACK 2 TAB BTL PO STA (14:37)
== END 2022-06-20 15:47 | disposition home or self-care (01) ==
LOC: EC 11:58
DX: O21.9 Vomiting of pregnancy, unspecified (principal); O26.892 Other specified pregnancy related conditions, second trimester; J45.909 Unspecified asthma, uncomplicated; F41.9 Anxiety disorder, unspecified; F32.A Depression, unspecified; Z91.040 Latex allergy status; Z88.1 Allergy status to other antibiotic agents; Z79.899 Other long term (current) drug therapy; Z3A.15 15 weeks gestation of pregnancy
CPT/HCPCS: 36415; 80053; 85025; 81003; 99284; 96374; 96361 ×3; J2405; S0119

== ENCOUNTER 2022-12-09 05:57 | Inpatient (IN) | payer OTHER ==
--- NOTE | 2022-12-08 18:24 | P.HPOB ---
History of Present Illness H&P Date: 12/08/22 Chief Complaint: Induction of labor This is a 27 y.o. female, 2, para 1, with an estimated date of confinement of 12/10/2022, estimated gestational age of 39-6/7 weeks, who presents for induction of labor. She complains of hip pain, pressure, and frequent contractions. Her was complicated by heart palpitations and dizziness and she was evaluated by cardiology. labs: Hepatitis B surface antigen-neg Rubella-immune RPR-NR Blood type-A neg Antibody screen-neg HIV-NR Hemoglobin-14.6 Toxoplasma-neg Random glucose-68 GC/Chlamydia/Trich-neg 1 hr. GTT-116 GBS-positive OB Hx: . History of 1 vaginal delivery. Program Professional Hx: No hx of STDs Social Hx: Single. Works as a [employer]. Review of Systems Constitutional: Denies chills, Denies fever Eyes: denies blurred vision, denies pain Ears, nose, mouth and throat: Denies headache, Denies sore throat Cardiovascular: Denies chest pain, Denies shortness of breath Respiratory: Denies cough Gastrointestinal: Reports abdominal pain (contractions), Denies diarrhea, Denies nausea, Denies vomiting Genitourinary: Reports pelvic pain, Reports Musculoskeletal: Reports low back pain Integumentary: Denies pruritus, Denies rash Neurological: Denies numbness, Denies weakness Psychiatric: Reports anxiety, Reports depression Past Medical History Past Medical History: Asthma Additional Past Medical History / Comment(s): pt states has childhood hx of asthma. states uses inhaler very rarely. pt also states that she has occasional migraines, has a hx of anxiety and depression that she has not had to be medicated for for 2 years. History of Any Multi-Drug Resistant Organisms: None Reported Past Surgical History: Breast Surgery Additional Past Surgical History / Comment(s): Lumpectomy left breast 2016 Past Anesthesia/Blood Transfusion Reactions: No Reported Reaction Past Psychological History: Anxiety, Depression Smoking Status: Never smoker Past Alcohol Use History: None Reported Past Drug Use History: None Reported - Past Family History Father Family Medical History: Hypertension Medications and Allergies Home Medications Medication Instructions Recorded Confirmed Type Vit No.180/Iron/Folic 1 tab PO DAILY 08/25/19 06/20/22 History [ Plus Tablet] Allergies Allergy/AdvReac Type Severity Reaction Status Date / Time erythromycin base Allergy Rash/Hives Verified 06/20/22 13:46 latex Allergy Rash/Hives Verified 06/20/22 13:46 Exam Osteopathic Statement: *. No significant issues noted on an osteopathic structural exam other than those noted in the History and Physical/Consult. HEENT: within normal limits Heart: regular rate and rhythm Lungs: clear to auscultation Abdomen: soft, , non-tender Cervix: 2 cm/70%/-1 heart tones: 140's by doppler Extremities: neg. Jazmin's Assessment and Plan (1) 39 weeks gestation of Status: Acute Code(s): Z3A.39 - 39 WEEKS GESTATION OF SNOMED Code(s): 42760646 (2) Group B Streptococcus carrier, +RV culture, currently Status: Acute Code(s): O99.820 - STREPTOCOCCUS B CARRIER STATE COMPLICATING SNOMED Code(s): 9921398845047 Plan: Proceed with oxytocin induction of labor. Expectant management. Antibiotic prophylaxis for GBS. Epidural anesthesia if desired.
[2022-12-09] MEDS ORDERED: LIDOCAINE 1% (10MG/ML) FOR IV START INTRADERMA PRN (06:14)
[2022-12-09] MEDS ORDERED: CARBOPROST TROMETHAMINE 250 MCG/ML 1 ML AMP IM PRN (06:14)
[2022-12-09] MEDS ORDERED: OXYTOCIN 30 UNITS/500 ML NS 30 UNIT in SALINE 1 500ML.BAG IV SCH ×2 (06:14→14:40)
[2022-12-09] MEDS ORDERED: LIDOCAINE 0.5% (PF) 5 MG/ML (50 ML SDV) SQ PRN (06:14)
[2022-12-09] MEDS ORDERED: OXYTOCIN 10 UNIT/ML 1 ML VIAL IM PRN (06:14)
[2022-12-09] MEDS ORDERED: AMPICILLIN 2,000 MG in SODIUM CHLORIDE 0.9% 100 ML IVPB STA (06:14)
[2022-12-09] MEDS ORDERED: METHYLERGONOVINE 0.2 MG/ML 1 ML AMP IM PRN (06:14)
[2022-12-09] MEDS ORDERED: TERBUTALINE 1 MG/ML VIAL SQ PRN (06:14)
[2022-12-09] MEDS ORDERED: miSOPROStoL 200 MCG TAB PO PRN (06:14)
[2022-12-09] MEDS ORDERED: TRANEXAMIC ACID IN NACL,ISO-OS 1,000 MG in EMPTY BAG 1 BAG IV PRN (06:14)
[2022-12-09 06:33] LABS: Anisocytosis Slight; Basophils % (A) 1 %; Eosinophils # (A) 0.2 k/uL (0-0.7); Eosinophils % (A) 2 %; HCT 30.3 % (34.0-46.0); HGB 9.5 gm/dL (11.4-16.0); Hypochromasia Moderate; Lymphocytes % (A) 27 %; MCH 23.9 pg (25.0-35.0); MCHC 31.4 g/dL (31.0-37.0); MCV 76.2 fL (80.0-100.0); Microcytosis Slight; Monocytes # (A) 0.4 k/uL (0-1.0); Monocytes % (A) 5 %; Neutrophils # (A) 4.6 k/uL (1.3-7.7); Neutrophils % (A) 63 %; Platelet Count 304 k/uL (150-450); Poikilocytosis Moderate; RBC 3.98 m/uL (3.80-5.40); RDW 16.5 % (11.5-15.5); WBC 7.4 k/uL (3.8-10.6)
[2022-12-09] MEDS: LACTATED RINGERS 1,000 ML IV SCH ×3 (06:40→11:08)
[2022-12-09] MEDS ORDERED: SODIUM CHLORIDE 0.9% 100 ML BAG ONE (09:57)
[2022-12-09] MEDS ORDERED: fentaNYL (PF) 50 MCG/ML 5 ML AMP ONE (09:57)
[2022-12-09] MEDS ORDERED: ROPIVACAINE 5 MG/ML 20 ML AMPULE ONE (09:57)
[2022-12-09] MEDS: AMPICILLIN 1,000 MG in SODIUM CHLORIDE 0.9% 50 ML IVPB SCH ×2 (10:26→17:31)
[2022-12-09] MEDS ORDERED: ONDANSETRON 4 MG/2 ML VIAL IM STA (11:25)
[2022-12-09] MEDS ORDERED: ONDANSETRON 4 MG/2 ML VIAL IVP STA (11:25)
[2022-12-09] MEDS ORDERED: LANOLIN CREAM 5 GM TUBE TOPICAL PRN (14:40)
[2022-12-09] MEDS ORDERED: ZOLPIDEM 5 MG TAB PO PRN (14:40)
[2022-12-09] MEDS ORDERED: SIMETHICONE 80 MG CHEWABLE PO PRN (14:40)
[2022-12-09] MEDS ORDERED: diphenhydrAMINE 50 MG CAP PO PRN (14:40)
[2022-12-09] MEDS ORDERED: HYDROCORTISONE 2.5% RECTAL CREAM 30 GM TUBE RECTAL PRN (14:40)
[2022-12-09] MEDS ORDERED: diphenhydrAMINE 25 MG CAP PO PRN (14:40)
[2022-12-09] MEDS ORDERED: BENZOCAINE/MENTHOL SPRAY 1 GM/SPRAY AEROSOL TOPICAL PRN (14:40)
[2022-12-09] MEDS ORDERED: diphenhydrAMINE 50 MG/ML 1 ML VIAL IVP PRN ×2 (14:40)
[2022-12-09] MEDS: IBUPROFEN 600 MG TAB PO PRN ×2 (15:04→20:18)
[2022-12-09] MEDS ORDERED: Rhogam IMMUNE GLOBULIN 1,500 UNIT/1 ML IM ONE (17:22)
--- NOTE | 2022-12-09 17:53 | P.PROBDLV ---
Vaginal Delivery Note - . Vaginal Delivery Note: The patient progressed to complete dilation after oxytocin induction of labor and artificial rupture membranes with clear fluid noted. She did receive ampicillin due to group B streptococcus carrier. Once reaching complete, she began pushing. Infant's head came to a crown. With one further push, the 's head delivered across the perineum followed by the anterior shoulder and then nose and mouth were bulb suctioned. With one remaining push, the remainder the infant easily delivered and was placed on mother's abdomen. Cord was allowed to finish pulsating and then it was clamped and cut. A viable female infant is noted with scores of 8 at 1 minute and 9 at 5 minutes and infant weight of 8 lbs. 5 oz. Cord blood was obtained secondary to Rh- status. Placenta delivered shortly thereafter, intact, with a three-vessel cord. Uterus contracted fairly well after oxytocin was given and uterine massage was carried out. Inspection of the perineum revealed a second degree perineal laceration. This area was anesthetized with 1% lidocaine and then sutured with 3-0 and 2-0 Vicryl suture in the usual multilayer fashion. She did have bilateral periurethral abrasions that were noted to be hemostatic. Estimated blood loss is approximately 200 mL's. Both mother and infant are in stable condition.
[2022-12-09] MEDS: ACETAMINOPHEN TAB 325 MG TAB PO PRN ×2 (18:26→23:49)
[2022-12-09] MEDS: SENNOSIDES-DOCUSATE SODIUM 1 EACH TAB PO SCH (20:18)
[2022-12-10] MEDS: ACETAMINOPHEN TAB 325 MG TAB PO PRN ×2 (05:13→11:35)
[2022-12-10 06:36] LABS: Anisocytosis Slight; Basophils # (A) 0.1 k/uL (0-0.2); Basophils % (A) 1 %; Eosinophils # (A) 0.2 k/uL (0-0.7); Eosinophils % (A) 2 %; HCT 25.6 % (34.0-46.0); HGB 8.2 gm/dL (11.4-16.0); Hypochromasia Moderate; Lymphocytes # (A) 2.2 k/uL (1.0-4.8); Lymphocytes % (A) 23 %; MCH 24.2 pg (25.0-35.0); MCHC 31.9 g/dL (31.0-37.0); MCV 75.8 fL (80.0-100.0); Mean Platelet Volume 8.6; Microcytosis Slight; Monocytes # (A) 0.5 k/uL (0-1.0); Monocytes % (A) 5 %; Neutrophils # (A) 6.7 k/uL (1.3-7.7); Neutrophils % (A) 69 %; Platelet Count 267 k/uL (150-450); Poikilocytosis Moderate; RBC 3.38 m/uL (3.80-5.40); RDW 16.5 % (11.5-15.5); WBC 9.7 k/uL (3.8-10.6)
--- NOTE | 2022-12-10 08:52 | P.DS ---
Providers Date of admission: 12/09/22 05:57 Expected date of discharge: 12/10/22 Attending physician: Tasha Jameson Primary care physician: Stated None - Discharge Diagnosis(es) (1) 39 weeks gestation of Current Visit: No Status: Acute (2) Group B Streptococcus carrier, +RV culture, currently Current Visit: No Status: Acute Hospital Course: This is a 27-year-old female 2 para 1 at 39-6/7 weeks who presented for induction of labor. She underwent oxytocin induction of labor and delivered vaginally a viable female infant on 12/09/2022 with scores of 8 at 1 minute and 9 at 5 minutes and infant weight of 8 lbs. 5 oz. Her course has been uncomplicated. Lochia has been decreasing. Her pain is been fairly well-controlled. She is breast-feeding. Vital signs are stable. Abdomen is soft with fundus firm and nontender. Extremities show negative Homans. Impression is status post vaginal delivery day #1. Plan is to discharge home today. Routine instructions are given. She is advised to follow up in the office in 6 weeks for check. She will be given a prescription for ibuprofen and a breast pump. Procedures: Oxytocin induction of labor Spontaneous vaginal delivery of a viable female on 12/09/2022 Patient Condition at Discharge: Stable Plan - Discharge Summary Discharge Rx Participant: No New Discharge Prescriptions: New Ibuprofen [Motrin] 600 mg PO Q6HR PRN #60 tab PRN Reason: Mild Pain (Scale 1 To 3) Continue Vit No.180/Iron/Folic [ Plus Vitamin-Mineral] 1 tab PO DAILY Discharge Medication List Vit No.180/Iron/Folic [ Plus Vitamin-Mineral] 1 tab PO DAILY 08/25/19 [History] Ibuprofen [Motrin] 600 mg PO Q6HR PRN #60 tab 12/10/22 [Rx] Follow up Appointment(s)/Referral(s): Tasha Jameson DO [Doctor of Osteopathic Medicine] - 6 Weeks Activity/Diet/Wound Care/Special Instructions: Instructions 1. Do not begin any exercise program for 3 weeks. 2. Do not resume sexual relations for 3 weeks or longer if uncomfortable. 3. You may take tub baths or showers at any time. 4. You may use tampons if desired after 3 weeks. 5. Keep the area of episiotomy (stitches) clean and dry. 6. If you are not nursing, wear a good fitting, supportive bra during the day and limit fluid intake for at least 1 week to prevent breast engorgement. 7. Call the office, [phone], within the next week to make appointment for your 6 week checkup if it has not already been made. 8. Report any of the following occurrences to the doctor promptly: a. Heavy, excessive bleeding b. Chills, fever c. Burning or frequency of urination d. Pain or redness and breasts if nursing e. Increasing pain or swelling in episiotomy (stitches). In addition to the above instructions, the following additional should be followed: 1. No heavy lifting or straining (exercising) until after 6 week checkup. 2. Keep abdominal incision clean and dry: You may wear a dressing if more comfortable. 3. Make office appointment for 10 days after going home or as instructed by her doctor. Discharge Disposition: HOME SELF-CARE
[2022-12-10] MEDS: IBUPROFEN 600 MG TAB PO PRN (09:33)
[2022-12-10] MEDS: SENNOSIDES-DOCUSATE SODIUM 1 EACH TAB PO SCH (09:33)
[2022-12-10 09:52] VITALS: RESP 18
[2022-12-10 16:23] VITALS: BP 110/70; PULSE 87; TEMP 98
== END 2022-12-10 17:05 | disposition home or self-care (01) | DRG 807 ==
LOC: 4FBP 05:57
PROVIDERS: ADMIT Obstetrics & Gynecology; ATTEND Obstetrics & Gynecology
PROC: 10E0XZZ Delivery of Products of Conception, External Approach (ICD-10-PCS; principal; 2022-12-09)
PROC: 0KQM0ZZ Repair Perineum Muscle, Open Approach (ICD-10-PCS; 2022-12-09)
DX: O99.824 Streptococcus B carrier state complicating childbirth (principal); Z37.0 Single live birth; J45.909 Unspecified asthma, uncomplicated; O70.1 Second degree perineal laceration during delivery; O99.52 Diseases of the respiratory system complicating childbirth; Z3A.39 39 weeks gestation of pregnancy
CPT/HCPCS: 85025; 85461; 86850; 86870; 86880; 86900; 86901